=== PATIENT | male | born 1940 | race Caucasian/White ===

== ENCOUNTER → 2017-10-16 | Outpatient (CLI) | payer OTHER ==
[~2017-10-16] MED LIST: AMLODIPINE PO; ASPI-496 PO; ATOR20TA9 PO; CARV6.252 PO; CEPH-368 PO; DIAZ5TAB PO; EXFORGE PO; FLUT250D PO; HYDR-3245 PO; LORA10TA3 PO; VALSARTAN PO
[2017-10-16 12:32] LABS: HEMOGLOBIN 16.9 g/dL (13.7-18.0); WHITE BLOOD COUNT 8.3 x10^3/uL (3.4-10)
[2017-10-16 12:46] LABS: BLOOD UREA NITROGEN 14 mg/dL (7-18)
[2017-10-16 12:52] LABS: ASPARTATE AMINO TRANSFERASE 25 U/L (15-37)
== END | disposition home or self-care (01) ==
LOC: LAB 08:41
PROVIDERS: ATTEND Internal Medicine Cardiovascular Disease
DX: I10 Essential (primary) hypertension (principal); E78.00 Pure hypercholesterolemia, unspecified
CPT/HCPCS: 36415; 80053; 80061; 85025

== ENCOUNTER 2019-06-24 13:36 | Outpatient (CLI) | payer OTHER | END 2019-06-24 23:59 | disposition home or self-care (01) | LOC: CVU 13:36 | PROVIDERS: ATTEND Internal Medicine Cardiovascular Disease | DX: I08.0 Rheumatic disorders of both mitral and aortic valves (principal); I25.10 Atherosclerotic heart disease of native coronary artery without angina pectoris | CPT/HCPCS: 0399T; 93306; 93922 ==

== ENCOUNTER → 2020-07-07 | Outpatient (CLI) | payer OTHER ==
[~2020-07-07] MED LIST changes: +ATOR20TA37 PO; -ATOR20TA9 PO; +LORA-247 PO; -LORA10TA3 PO
[2020-07-07 12:50] LABS: BASOPHILS # (AUTO) 0.01 x10^3/uL (0-0.1); BASOPHILS % (AUTO) 0 % (0-1); EOSINOPHILS # (AUTO) 0.32 x10^3/uL (0-0.4); EOSINOPHILS % (AUTO) 4 % (1-7); LYMPHOCYTES % (AUTO) 28 % (22-44); MD NO; MEAN CORPUSCULAR HEMOGLOBIN 31.4 pg (27.5-34.5); MEAN CORPUSCULAR HGB CONC 33.4 g/dL (33.2-36.2); MEAN CORPUSCULAR VOLUME 94.2 fL (81-97); MEAN PLATELET VOLUME 8.7 fL (7.4-10.4); MONOCYTES # (AUTO) 0.63 x10^3/uL (0.2-0.8); MONOCYTES % (AUTO) 9 % (2-9); NEUTROPHILS # (AUTO) 4.41 x10^3/uL (1.8-6.8); NEUTROPHILS % (AUTO) 59 % (42-75); PLATELET COUNT 214 x10^3/uL (130-400); RED BLOOD COUNT 4.93 x10^6/uL (4.38-5.82); RED CELL DISTRIBUTION WIDTH 13.5 % (9.4-14.8)
[2020-07-07 12:55] LABS: CHLORIDE 107 mmol/L (98-107)
[2020-07-07 13:02] LABS: ALANINE AMINOTRANSFERASE 29 U/L (12-78); ALKALINE PHOSPHATASE 68 U/L (45-117); ANION GAP 6 mmol/L (5-15); BILIRUBIN,TOTAL 0.9 mg/dL (0.2-1.0); CALCIUM 8.7 mg/dL (8.5-10.1); CHOL/HDL RATIO 3.2; CHOLESTEROL, TOTAL 115 mg/dL (140-239); CREATININE 1.09 mg/dL (0.7-1.3); HDL CHOL % 31 % (26-37); HDL CHOLESTEROL (DIRECT) 36 mg/dL (40-60); LDL CHOLESTEROL,CALCULATED 59 mg/dL (54-169); LDL/HDL RATIO 1.6 (0.5-3.0); TOTAL PROTEIN 7.9 g/dL (6.4-8.2); TRIGLYCERIDES 99 mg/dL (50-200); VLDL CHOLESTEROL 20 mg/dL (0-25)
== END | disposition home or self-care (01) ==
LOC: CFH 08:01
PROVIDERS: ATTEND Internal Medicine Cardiovascular Disease
DX: E78.00 Pure hypercholesterolemia, unspecified (principal); I10 Essential (primary) hypertension; I25.10 Atherosclerotic heart disease of native coronary artery without angina pectoris; I70.213 Atherosclerosis of native arteries of extremities with intermittent claudication, bilateral legs; R53.83 Other fatigue; E66.9 Obesity, unspecified; Z95.1 Presence of aortocoronary bypass graft
CPT/HCPCS: 36415; 80053; 80061; 85025

== ENCOUNTER → 2021-05-17 | Outpatient (CLI) | payer MEDICARE ==
[~2021-05-17] MED LIST changes: -HYDR-3245 PO; +HYDR1TAB53 PO; +OMNIPAQUE 350 MG/ML, 75ML BOTTLE ONE
== END | disposition home or self-care (01) ==
LOC: CFH 10:39
PROVIDERS: ATTEND Nurse Practitioner Family
DX: R91.1 Solitary pulmonary nodule (principal); R59.0 Localized enlarged lymph nodes; Z95.1 Presence of aortocoronary bypass graft
CPT/HCPCS: 71260; 82565; Q9967

== ENCOUNTER 2021-06-03 07:36 | Day surgery (SDC) | payer MEDICARE ==
[~2021-06-03 07:36] MED LIST changes: -OMNIPAQUE 350 MG/ML, 75ML BOTTLE ONE
[2021-06-03] MEDS ORDERED: FENTANYL PF 100 MCG/2ML ONE (09:06)
[2021-06-03] MEDS ORDERED: NALOXONE 1 MG/ML, 2ML ONE (09:07)
[2021-06-03] MEDS ORDERED: MIDAZOLAM 1 MG/ML, 5ML ONE (09:07)
[2021-06-03] MEDS ORDERED: FLUMAZENIL 0.1 MG/1 ML, 5ML ONE (09:07)
[2021-06-03] MEDS ORDERED: ALBUTEROL HFA 90 MCG/SPRAY INH PRN (10:30)
== END 2021-06-03 12:15 | disposition home or self-care (01) ==
LOC: RAD 07:36
PROVIDERS: ATTEND Nurse Practitioner Family
DX: R91.1 Solitary pulmonary nodule (principal); C34.12 Malignant neoplasm of upper lobe, left bronchus or lung; J45.909 Unspecified asthma, uncomplicated; I10 Essential (primary) hypertension; Z79.899 Other long term (current) drug therapy; Z95.1 Presence of aortocoronary bypass graft
CPT/HCPCS: 32408; 71045; 88305; 99156; J2250; J3010; 77012; 99157; J2310

== ENCOUNTER → 2021-06-16 | Outpatient (CLI) | payer MEDICARE ==
[~2021-06-16] MED LIST changes: +GADOTERATE 10 MMOL/20ML SYR ONE
== END | disposition home or self-care (01) ==
LOC: RAD 15:27
PROVIDERS: ATTEND Internal Medicine
DX: C34.12 Malignant neoplasm of upper lobe, left bronchus or lung (principal); G31.9 Degenerative disease of nervous system, unspecified
CPT/HCPCS: 70553; A9575

== ENCOUNTER 2021-07-01 07:25 | Outpatient (CLI) | payer MEDICARE, OTHER ==
[~2021-07-01 07:25] MED LIST changes: -GADOTERATE 10 MMOL/20ML SYR ONE
== END 2021-07-01 23:59 | disposition home or self-care (01) ==
LOC: PETCFH 07:25
PROVIDERS: ATTEND Internal Medicine
DX: C34.12 Malignant neoplasm of upper lobe, left bronchus or lung (principal); K82.8 Other specified diseases of gallbladder; K57.30 Diverticulosis of large intestine without perforation or abscess without bleeding; J98.4 Other disorders of lung
CPT/HCPCS: 78815; A9552

== ENCOUNTER 2021-07-15 07:18 | Outpatient (CLI) | payer MEDICARE, OTHER ==
[~2021-07-15 07:18] MED LIST changes: -FLUT250D PO; +FLUT250D2 PO
[2021-07-28] MEDS ORDERED: FLUT12AE2 INH (11:38)
[2021-07-28] MEDS ORDERED: AMLO-211 PO (11:38)
[2021-07-28] MEDS ORDERED: ATOR40TA78 PO (11:39)
[2021-07-29] MEDS ORDERED: POTA10TA PO (17:36)
[2021-07-29] MEDS ORDERED: FURO-93 PO (17:36)
== END 2021-07-15 23:59 | disposition home or self-care (01) ==
LOC: ROC 07:18
PROVIDERS: ATTEND Radiology Radiation Oncology
DX: C34.12 Malignant neoplasm of upper lobe, left bronchus or lung (principal); I10 Essential (primary) hypertension; J45.909 Unspecified asthma, uncomplicated; Z79.899 Other long term (current) drug therapy
CPT/HCPCS: 99214; G0463